=== PATIENT | female | born 1990 | race Asian ===

== ENCOUNTER 2020-07-05 02:15 | Inpatient (IN) | payer OTHER, SELFPAY ==
[~2020-07-05] VITALS: Ht 152.4 cm; Wt 77.1 kg
[2020-07-05] MEDS ORDERED: ACETAMINOPHEN 650 MG/20.3 ML UDC PO PRN (03:50)
[2020-07-05] MEDS ORDERED: ACETAMINOPHEN 325 MG TAB ONE (04:27)
[2020-07-05] MEDS: MORPHINE SULFATE 4 MG/ML SYR IVP PRN (08:01)
[2020-07-05] MEDS ORDERED: BETAMETH ACET/BETAMETH NA PH 30 MG/5 ML VIAL IM ONE (09:09)
[2020-07-05 09:50] VITALS: BP 105/63
[2020-07-05] MEDS ORDERED: BETAMETH ACET/BETAMETH NA PH 30 MG/5 ML VIAL IM SCH (11:00)
[2020-07-05 11:33] LABS: BASOPHILS % (AUTO) 0.5 % (0.0-2.0); EOSINOPHILS # (AUTO) 0.1 K/uL (0-0.4); EOSINOPHILS % (AUTO) 1.7 % (0.0-4.0); HEMATOCRIT 28.1 % (36-48); HEMOGLOBIN 9.3 g/dL (12.0-16.0); LYMPHOCYTES # (AUTO) 1.8 K/uL (2.5-16.5); LYMPHOCYTES % (AUTO) 20.3 % (20.5-51.1); MEAN CORPUSCULAR HEMOGLOBIN 28 pg (27-31); MEAN CORPUSCULAR HGB CONC 33 g/dL (33-37); MEAN CORPUSCULAR VOLUME 83.3 fL (80-94); MONOCYTES # (AUTO) 0.7 K/uL (0.8-1.0); MONOCYTES % (AUTO) 7.4 % (1.7-9.3); NEUTROPHILS # (AUTO) 6.3 K/uL (1.8-7.7); NEUTROPHILS % (AUTO) 70.1 % (42.2-75.2); PLATELET COUNT (AUTO) 198 K/uL (140-450); RED BLOOD CELL COUNT(AUTO) 3.37 MIL/uL (4.20-5.40); RED CELL DISTRIBUTION WIDTH 17.1 % (11.6-13.7)
[2020-07-05 11:50] LABS: ALBUMIN 2.3 g/dL (3.4-5.0); ANION GAP 13.1 (8-16); CARBON DIOXIDE 23.7 mmol/L (21-32); CREATININE 0.5 mg/dL (0.6-1.3); POTASSIUM 3.8 mmol/L (3.5-5.1); TOTAL BILIRUBIN 0.4 mg/dL (0.0-1.0)
[2020-07-05] MEDS: LACTATED RINGERS 1,000 ML IV SCH ×2 (14:29→20:45)
[2020-07-05 21:31] LABS: APPEARANCE,URINE CLEAR (CLEAR); BILIRUBIN,URINE NEGATIVE (NEGATIVE); BLOOD, URINE NEGATIVE (NEGATIVE); COLOR,URINE YELLOW (YELLOW); LEUKOCYTE ESTERASE ,URINE NEGATIVE (NEGATIVE); NITRITE, URINE NEGATIVE (NEGATIVE); UGLUCOSE NEGATIVE (NEGATIVE)
[2020-07-06] MEDS: LACTATED RINGERS 1,000 ML IV SCH ×3 (08:01→23:45)
--- NOTE | 2020-07-06 08:33 | NUR ---
PATIENT HAS BEEN SCREENED AND CATEGORIZED LOW NUTRITION RISK. PATIENT WILL BE SEEN WITHIN 7 DAYS OF ADMISSION. 07/12/[address]
[2020-07-07] MEDS: LACTATED RINGERS 1,000 ML IV SCH ×3 (01:00→16:00)
[2020-07-07] MEDS ORDERED: ACETAMINOPHEN 325 MG TAB ONE (08:02)
[2020-07-07] MEDS ORDERED: ACETAMINOPHEN 325 MG TAB PO PRN (08:05)
[2020-07-07] MEDS: MISOPROSTOL 25 MCG TAB VG SCH (16:24)
[2020-07-07] MEDS: MORPHINE SULFATE 4 MG/ML SYR IVP PRN (20:25)
[2020-07-08] MEDS: LACTATED RINGERS 1,000 ML IV SCH ×3 (01:00→16:57)
[2020-07-08] MEDS ORDERED: PROMETHAZINE 25 MG/ML VIAL IVP PRN (06:00)
[2020-07-08] MEDS: MISOPROSTOL 25 MCG TAB VG SCH ×4 (06:36→20:08)
[2020-07-08] MEDS ORDERED: NALBUPHINE 10 MG/ML AMP IVP PRN (22:10)
[2020-07-09] MEDS: MISOPROSTOL 25 MCG TAB VG SCH (00:52)
[2020-07-09] MEDS: LACTATED RINGERS 1,000 ML IV SCH (00:53)
[2020-07-09] MEDS ORDERED: OXYTOCIN 20 UNITS/LR PREMIX 1,000 ML IV ONE ×2 (08:31→13:01)
[2020-07-09] MEDS: OXYTOCIN 20 UNITS in LACTATED RINGERS 1,000 ML IV SCH ×2 (08:56→13:47)
[2020-07-09] MEDS ORDERED: MORPHINE PRES FREE 10 MG/10 ML AMP IV ONE ×2 (11:34→12:22)
[2020-07-09] MEDS ORDERED: fentaNYL citrate 0.05 MG/ML VIAL ONE ×2 (11:34→12:22)
[2020-07-09] MEDS ORDERED: fentaNYL citrate 0.05 MG/ML VIAL IVP PRN (12:05)
[2020-07-09] MEDS ORDERED: ONDANSETRON 4 MG/2 ML VIAL IVP PRN ×2 (12:05)
[2020-07-09] MEDS ORDERED: OXYTOCIN 20 UNITS in LACTATED RINGERS 1,000 ML IV SCH ×2 (12:05→12:35)
[2020-07-09] MEDS ORDERED: MEPERIDINE 25 MG/ML SYR IVP PRN (12:05)
[2020-07-09] MEDS ORDERED: HYDROmorphone 1 MG/ML AMP IVP PRN (12:05)
[2020-07-09] MEDS ORDERED: diphenhydrAMINE 50 MG/ML VIAL IVP PRN ×2 (12:05)
[2020-07-09] MEDS ORDERED: NALOXONE 0.4 MG/ML VIAL IVP PRN ×2 (12:05)
[2020-07-09] MEDS ORDERED: OXYTOCIN 10 UNITS/ML VIAL ONE (12:22)
[2020-07-09] MEDS ORDERED: DEXAMETHASONE 4 MG/ML VIAL ONE (12:22)
[2020-07-09] MEDS ORDERED: ONDANSETRON 4 MG/2 ML VIAL ONE (12:22)
[2020-07-09] MEDS ORDERED: PHENYLEPHRINE 10 MG/ML VIAL ONE (12:22)
[2020-07-09] MEDS ORDERED: ceFAZolin 1,000 MG VIAL ONE (12:22)
[2020-07-09] MEDS ORDERED: METOCLOPRAMIDE 10 MG/2 ML INJ VIAL ONE (12:22)
[2020-07-09] MEDS ORDERED: METHYLERGONOVINE 0.2 MG/ML AMP IM PRN (12:35)
[2020-07-09] MEDS ORDERED: TEMAZEPAM 15 MG CAP PO PRN (12:35)
[2020-07-09] MEDS ORDERED: IBUPROFEN 800 MG TAB PO PRN (12:35)
[2020-07-09] MEDS ORDERED: oxyCODONE/APAP 5/325 MG 1 TAB TAB PO PRN ×2 (12:35)
[2020-07-09] MEDS ORDERED: KETOROLAC 30 MG/ML VIAL IVP PRN (12:35)
[2020-07-09] MEDS: KETOROLAC 30 MG/ML VIAL IM/IVP SCH (18:50)
[2020-07-09] MEDS: DOCUSATE SOD/SENNA 50/8.6 MG 1 TAB PO SCH (21:50)
[2020-07-10] MEDS: KETOROLAC 30 MG/ML VIAL IM/IVP SCH ×3 (00:52→13:22)
[2020-07-10] MEDS ORDERED: OXYTOCIN 20 UNITS/LR PREMIX 1,000 ML IV ONE (05:38)
[2020-07-10 07:16] LABS: BASOPHILS % (AUTO) 0.1 % (0.0-2.0); EOSINOPHILS % (AUTO) 0.1 % (0.0-4.0); HEMOGLOBIN 8.9 g/dL (12.0-16.0); LYMPHOCYTES # (AUTO) 1.9 K/uL (2.5-16.5); LYMPHOCYTES % (AUTO) 12.7 % (20.5-51.1); MEAN CORPUSCULAR HEMOGLOBIN 28 pg (27-31); MEAN CORPUSCULAR HGB CONC 33 g/dL (33-37); MEAN CORPUSCULAR VOLUME 83.9 fL (80-94); MONOCYTES # (AUTO) 0.8 K/uL (0.8-1.0); MONOCYTES % (AUTO) 5.6 % (1.7-9.3); NEUTROPHILS # (AUTO) 12.3 K/uL (1.8-7.7); NEUTROPHILS % (AUTO) 81.5 % (42.2-75.2); PLATELET COUNT (AUTO) 195 K/uL (140-450); RED BLOOD CELL COUNT(AUTO) 3.22 MIL/uL (4.20-5.40); WHITE BLOOD COUNT (AUTO) 15.1 K/uL (4.8-10.8)
[2020-07-10] MEDS: SIMETHICONE 80 MG TAB.CHEW PO PRN ×2 (10:31→13:22)
[2020-07-10] MEDS: DOCUSATE SOD/SENNA 50/8.6 MG 1 TAB PO SCH (21:16)
[2020-07-10] MEDS ORDERED: CAMERA MC ONE (21:27)
== END 2020-07-11 15:25 | disposition home or self-care (01) | DRG 786 ==
LOC: MLD 02:15 → OBSVTOIN 11:20 → MLD 07-06 12:34 → MFCC 07-09 12:51
PROVIDERS: ADMIT Obstetrics & Gynecology; ATTEND Obstetrics & Gynecology
PROC: 10D00Z1 Extraction of Products of Conception, Low, Open Approach (ICD-10-PCS; principal; 2020-07-09 12:00)
DX: O41.03X0 Oligohydramnios, third trimester, not applicable or unspecified (principal); O60.23X0 Term delivery with preterm labor, third trimester, not applicable or unspecified; O61.9 Failed induction of labor, unspecified; Z37.0 Single live birth; Z20.828 Contact with and (suspected) exposure to other viral communicable diseases; Z3A.36 36 weeks gestation of pregnancy
CPT/HCPCS: 36415; 51702; 59200; 76805; 76815; 76819; 80053; 81003; 85025; 86592; 86762; 86886; 86900; 86901; 87340; 87653-90; G0378; J0690; J0702; J1100; J1200; J1885; J2270; J2300; J2370; J2405; J2550; J2590; J2765; J3010; J7030; J7060; J7120

== ENCOUNTER 2020-07-19 16:53 | Emergency (ER) | payer OTHER, SELFPAY ==
[~2020-07-19] VITALS: Ht 152.4 cm; Wt 69.9 kg
[2020-07-19 17:08] VITALS: BP 107/54
--- NOTE | 2020-07-19 17:15 | NUR ---
PATIENT TRIAGED. NOT IN ACUTE DISTRESS. ASKED TO WAIT IN LOBBY TO BE SEEN BY MD.
--- NOTE | 2020-07-19 17:53 | NUR ---
urine collected at [id number]
--- NOTE | 2020-07-19 17:54 | NUR ---
PT AMBULATED TO CHAIR C
[2020-07-19 18:16] LABS: APPEARANCE,URINE CLEAR (CLEAR); BILIRUBIN,URINE NEGATIVE (NEGATIVE); BLOOD, URINE 3+ (NEGATIVE); COLOR,URINE YELLOW (YELLOW); LEUKOCYTE ESTERASE ,URINE 1+ (NEGATIVE); NITRITE, URINE NEGATIVE (NEGATIVE); UGLUCOSE NEGATIVE (NEGATIVE)
[2020-07-19 18:18] LABS: BASOPHILS # (AUTO) 0.1 K/uL (0.00-0.22); BASOPHILS % (AUTO) 0.7 % (0.0-2.0); EOSINOPHILS # (AUTO) 0.1 K/uL (0-0.4); EOSINOPHILS % (AUTO) 1.8 % (0.0-4.0); HEMATOCRIT 34.5 % (36-48); HEMOGLOBIN 11.2 g/dL (12.0-16.0); LYMPHOCYTES # (AUTO) 2.1 K/uL (2.5-16.5); MEAN CORPUSCULAR HEMOGLOBIN 27 pg (27-31); MEAN CORPUSCULAR HGB CONC 33 g/dL (33-37); MEAN CORPUSCULAR VOLUME 84.3 fL (80-94); MONOCYTES # (AUTO) 0.4 K/uL (0.8-1.0); MONOCYTES % (AUTO) 5.5 % (1.7-9.3); NEUTROPHILS # (AUTO) 5.1 K/uL (1.8-7.7); PLATELET COUNT (AUTO) 307 K/uL (140-450); RED BLOOD CELL COUNT(AUTO) 4.09 MIL/uL (4.20-5.40); RED CELL DISTRIBUTION WIDTH 17.6 % (11.6-13.7); WHITE BLOOD COUNT (AUTO) 7.8 K/uL (4.8-10.8)
[2020-07-19 18:24] LABS: RBC,URINE 11-20 (MOD) /HPF (0-5)
[2020-07-19 18:30] LABS: ALBUMIN 3.3 g/dL (3.4-5.0); ANION GAP 11.4 (8-16); CARBON DIOXIDE 27.8 mmol/L (21-32); CREATININE 0.8 mg/dL (0.6-1.3); POTASSIUM 4.2 mmol/L (3.5-5.1); TOTAL BILIRUBIN 0.3 mg/dL (0.0-1.0)
[2020-07-19 18:41] VITALS: BP 105/51
--- NOTE | 2020-07-19 19:10 | NUR ---
Soo worley in ED - 07/19/20 at 1924 by KHRIS PT TAKEN TO CT VIA W/C
--- NOTE | 2020-07-19 19:21 | NUR ---
REPORT GAVE TO JASMINE. ROSSI OF CARE AT THIS TIME.
--- NOTE | 2020-07-19 19:22 | NUR ---
MOVED TO [facility]
--- NOTE | 2020-07-19 19:24 | NUR ---
PT TAKEN TO CT VIA W/C
== END 2020-07-19 20:37 | disposition home or self-care (01) ==
LOC: MED 16:53
DX: R10.30 Lower abdominal pain, unspecified (principal)
CPT/HCPCS: 36415; 74177; 80053; 81001; 83690; 84702; 85025; 87086; 99285; Q9967